=== PATIENT | male | born 1965 | race Caucasian/White ===

== ENCOUNTER 2021-09-10 11:03 | Inpatient (IN) ==
--- NOTE | 2021-08-13 12:30 | Anesthesiology Consultation ---
Date of Service August 13, 2021 Assessment & Plan (1) Encounter for pre-operative examination: Chart Review Chart Review: Acceptable Risk for Surgery and Patient NOT seen in Pre Admission Testing Consults Requested none History Surgery Operation Date: 08/21/21 07:45 Proposed Procedures p L4-L5 Decompression and Fusion, L5-S1 Hardware Removal - Christophe Post DO Height/Weight Height: 5 ft 11 in Weight: 136.078 kg Allergies Allergy/AdvReac Type Severity Reaction Status Date / Time oxycodone AdvReac Mild "SHAKY" Verified 08/04/21 07:32 Medications Home Medications Medication Instructions Recorded Confirmed Last Taken acebutolol 200 mg capsule 200 mg PO BID 08/04/21 08/04/21 Unknown acetaminophen 325 mg tablet 650 mg PO QAM 08/04/21 08/04/21 Unknown (Tylenol) albuterol sulfate 90 mcg/actuation 1 inh INHALATION QID PRN 08/04/21 08/04/21 Unknown aerosol inhaler cyclobenzaprine 10 mg tablet 10 mg PO TID PRN 08/04/21 08/04/21 Unknown fluticasone furoate 200 1 inh INHALATION QAM 08/04/21 08/04/21 Unknown mcg-vilanterol 25 mcg/dose inhalation powder (Breo Ellipta) indomethacin 50 mg capsule 50 mg PO QID PRN 08/04/21 08/04/21 Unknown sertraline 100 mg tablet 200 mg PO QAM 08/04/21 08/04/21 Unknown simvastatin 20 mg tablet (Zocor) 20 mg PO PM 08/04/21 08/04/21 Unknown tiotropium bromide 18 mcg capsule 1 cap INHALATION QAM 08/04/21 08/04/21 Unknown with inhalation device (Spiriva with HandiHaler) Past Medical History Medical History Anxiety Asthma uses resc inh at Degenerative disc disease Gout History of COVID-28 October 2020> hospitalized at [facility] > 2 days > had pneumonia with it Hyperlipidemia Hypertension Osteoarthritis Sleep apnea cpap Past Surgical History Surgical History Fusion of spine L5 - S1 History of cardiac cath 2019> no stents History of colonoscopy History of tonsillectomy History of tooth extraction History of total knee replacement right Hx of umbilical hernia repair Social History Smoking Status: Never smoker Do You Dip or Chew Tobacco: No Hx Alcohol Use: No Hx Substance Use: No substance use type: does not use Testing Laboratory Results 07/21/21 WBC 6.1 Hgb 14.7 platelet 208 07/26/21 Na 137 K 4.5 Cl 106 CO2 27 BUN 23 Cr 1.14 glucose 108 Electrocardiogram Date: 07/21/21 SB @ [address]-T changes are nonspecific Echocardiogram Date: 03/23/18 Technically limited study, enhanced with echo contrast Normal LV size, EF 66 % Moderate LVH No valve pathology Cardiac Catheterization Date: 03/23/18 Angiographically normal coronary arteries Normal ejection fraction Noncardiac chest pain
[~2021-09-10 11:03] MED LIST: ACETAMINOPHEN 500 MG TAB PO SCH; CeleBREX 200 MG CAP PO SCH; GABAPENTIN 600 MG DOSE PO SCH; LR 15ML/HR IV SCH
[2021-09-10] MEDS ORDERED: MIDAZOLAM HCL 1 MG/ML 2ML VIAL ONE (11:17)
[2021-09-10] MEDS ORDERED: fentaNYL citrate 100 MCG/2 ML VIAL ONE (11:17)
--- NOTE | 2021-09-10 13:50 | History & Physical Report ---
Date of Service September 10, 2021 Assessment & Plan (1) Neurogenic claudication due to lumbar spinal stenosis: Plan: L4-L5 decompression and fusion, L5-S1 hardware removal History of Present Illness Chief Complaint: Back and leg pain Primary Care Provider: Justo Doty MD This is a 48-year-old male who presents with chronic persistent back and leg pain. After failing a course of nonoperative care is here for surgical invention. Allergies Allergy/AdvReac Type Severity Reaction Status Date / Time oxycodone AdvReac Mild "SHAKY" Verified 09/10/21 11:23 Home Medications Medication Instructions Recorded Confirmed Type acebutolol 200 mg capsule 200 mg PO BID 08/04/21 09/10/21 History acetaminophen 325 mg tablet 650 mg PO QAM 08/04/21 09/10/21 History (Tylenol) albuterol sulfate 90 mcg/actuation 1 inh INHALATION QID PRN 08/04/21 09/10/21 History aerosol inhaler cyclobenzaprine 10 mg tablet 10 mg PO TID PRN 08/04/21 09/10/21 History fluticasone furoate 200 1 inh INHALATION QAM 08/04/21 09/10/21 History mcg-vilanterol 25 mcg/dose inhalation powder (Breo Ellipta) indomethacin 50 mg capsule 50 mg PO QID PRN 08/04/21 09/10/21 History sertraline 100 mg tablet (Zoloft) 200 mg PO QAM 08/04/21 09/10/21 History simvastatin 20 mg tablet (Zocor) 20 mg PO PM 08/04/21 09/10/21 History tiotropium bromide 18 mcg capsule 1 cap INHALATION QAM 08/04/21 09/10/21 History with inhalation device (Spiriva with HandiHaler) ibuprofen 100 mg tablet 600 mg PO QID PRN 09/10/21 09/10/21 History Past Med/Surg History Medical History Anxiety Asthma uses resc inh at Degenerative disc disease Gout History of COVID-28 October 2020> hospitalized at [facility] > 2 days > had pneumonia with it Hyperlipidemia Hypertension Osteoarthritis Sleep apnea cpap Surgical History Fusion of spine L5 - S1 History of cardiac cath 2020> no stents History of colonoscopy History of tonsillectomy History of tooth extraction History of total knee replacement right Hx of umbilical hernia repair Social History Smoking Status: Never smoker Second Hand Exposure: No; Do You Dip or Chew Tobacco: No; Tobacco Cessation Education Requested by Patient: No Hx Alcohol Use: No Hx Substance Use: No Preferred Language: Romansh Communication Ability: Effective Industrial Security Analyst Required: No Beliefs That Will Affect Care: None Current Living Situation: Spouse Other Information That Helps Us Care for You: No Feels Safe at Home: Yes Safety Concerns: Feels Safe At This Time Assistive Devices: CPAP and Glasses Physical Exam Physical Exam: Patient is alert and oriented Heart regular rhythm Lungs clear Results & Data ([facility]) Vital Signs (Past 12 Hours) Vital Signs Temp Pulse Resp BP Pulse Ox 09/10/21 11:32 36.8 C 69 20 153/89 H 97
[2021-09-10] MEDS ORDERED: BUPIVACAINE 0.5 % 5 MG/1 ML MPF 30ML VIAL ONE (14:13)
[2021-09-10] MEDS ORDERED: EPINEPHrine INJ 1 MG/ML AMP ONE (14:13)
[2021-09-10] MEDS ORDERED: ceFAZolin 330 MG/ML 1 GM VIAL ONE (14:14)
[2021-09-10] MEDS ORDERED: PHENYLEPHRINE 100MCG/ML 5ML SYR ONE (14:53)
[2021-09-10] MEDS ORDERED: HYDROmorphone INJ 2 MG/ML SYR/VIAL ONE (14:54)
[2021-09-10] MEDS ORDERED: LIDOCAINE 2% 2 ML VIAL/AMP(20MG/ML) INFIL ONE (14:54)
[2021-09-10] MEDS ORDERED: SUCCINYLCHOLINE CHLORIDE 20 MG/ML 10 ML VIAL IV ONE (14:54)
[2021-09-10] MEDS ORDERED: ePHEDrine sulfate 50 MG/ML AMP ONE (14:54)
[2021-09-10] MEDS ORDERED: LARYING-O-JET KIT (LTA) ONE (14:54)
[2021-09-10] MEDS ORDERED: NEOSTIGMINE METHYLSULFATE 1 MG/ML 10ML VIAL ONE (14:54)
[2021-09-10] MEDS ORDERED: ROCURONIUM BROMIDE 10 MG/ML 5 ML VIAL IV ONE (14:54)
[2021-09-10] MEDS ORDERED: ONDANSETRON INJ 2 MG/ML 2 ML VIAL ONE (14:54)
[2021-09-10] MEDS ORDERED: DEXAMETHASONE SOD INJ 4 MG/ML VIAL ONE (14:54)
[2021-09-10] MEDS ORDERED: GLYCOPYRROLATE 0.2 MG/ML VIAL ONE (14:54)
[2021-09-10] MEDS ORDERED: PROPOFOL IV EMULSION 10 MG/ML 20 ML VIAL IV ONE (14:54)
[2021-09-10] MEDS ORDERED: FLOSEAL HEMOSTATIC MATRIX 10ML TOP ONE (15:08)
--- NOTE | 2021-09-10 16:13 | Operative Report ---
Post Operative Report Pre & Post Diagnosis Operation Date: 08/21/21 12:45 <No data on this case meets the specified criteria> Operation Date: 09/10/21 12:35 Pre-Op Diagnosis: Neurogenic claudication due to lumbar spinal stenosis Post-Op Diagnosis: Neurogenic claudication due to lumbar spinal stenosis I identified the patient and participated in the time-out.: Yes Procedure Operation Date: 08/21/21 12:45 <No data on this case meets the specified criteria> Operation Date: 09/10/21 12:35 Actual Procedures #1 removal of posterior instrumentation L5-S1. #2 exploration of fusion L5-S1. #3 lumbar decompression with bilateral medial facetectomies and foraminotomies L3-L4 L4-5. #4 posterior spinal fusion L4-5. #5 placement of posterior instrumentation L4-L5. #6 interbody fusion L4-5. #7 placement of titanium cage 13 x 26 mm at L4-L5. #8 placement of locally harvested morselized autograft in the posterior gutters. #9 placement infuse collagen sponge, master graft in the posterior lateral gutters and I factor interbody space. Surgeon Christophe Post, DO Recreation Attendant Supervisor Jud Calhoun Estimated Blood Loss 250 Findings See Below The patient is 5 foot 11 inches tall weighing over 143 kg with a BMI in excess of 44. Patient's body habitus did contribute to significant technical difficulty required deepest retractors longus instruments in order to perform his procedure. This had at least 50% increased operative time. Specimens None Indications This is a 48-year-old male known to me presents with marked decline in status after failing course of nonoperative care is here for the above and procedure. Description of Procedure Patient met with identified informed consent obtained. Patient was then taken to the operative suite underwent ablation placed in a prone position the [facility] top Joe frame. All bony prominences well-padded eyes inspected to ensure no external pressure placed upon the. This point lumbar spine was prepped and draped in a sterile fashion. Sharp dissection with the assistance of Bovie cautery was performed down to and exposing the lamina and transverse processes of L4 and instrumentation at L5-S1 bilaterally. I then proceeded move the hardware bilaterally explore the fusion mass noting it to be mature and intact. Then performed a complete laminectomy of L4 partial laminectomy of L3 including bilateral medial facetectomies and foraminotomies addressing severe lateral recess stenosis. Pedicle screws were then placed in L4 and L5 bilaterally with assistance of fluoroscopy and appropriate sized talia placed. By way of a transforaminal portion radically discectomy of L4-5 was performed endplates curetted to subcortical mean bone and a 13 x 26 mm titanium cage filled I factor tapped in position. The rods then compressed locked into final position bilaterally. The transverse processes of L4 and L5 burred to subcortically bone. Infuse collagen sponge master graft local autograft was placed in the posterior gutters. 15 round JENNY drain inserted. The incision was then closed with 1 Vicryl in the fascia 2-0 Vicryl subcutaneously and 4 Monocryl for final skin closure. Steri-Strip sterile dressings placed. Patient will continue PACU stable condition. Please note spinal cord monitoring was utilized at the procedure no changes noted. Lastly Jud Calhoun was present at the entire surgeon while the patient positioning complex portions of the surgery and final skin closure. I attest to the content of the Intraoperative Record and any orders documented therein. Any exceptions are noted below.
--- NOTE | 2021-09-10 16:21 | Fluoroscopy Report ---
FL lumbar spine 2-3V CLINICAL HISTORY: L4-L5 DECOMPRESSION/FUSION L5-S1 HW REMOVAL COMPARISON STUDY: Lumbar spine MRI November 21, 2019. FLUOROSCOPY TIME: 11 seconds. FLUOROSCOPIC IMAGES: 2 FINDINGS: Previous L5-S1 discectomy with interbody spacer placement is noted. L5-S1 hardware was anne-marie kimmy. Interval L4-L5 discectomy and interbody spacer placement as noted. Posterior decompression with bilateral pedicle screw fusion at L4 and L5 is noted. IMPRESSION: Fluoroscopy provided during hardware removal, interval L4-L5 discectomy, posterior decom pression and bilateral pedicle screw fusion. ACT 112: Negative or not required by law. Electronically signed by: Danyel Huffman M.D. 09/10/2021 4:20 PM
[2021-09-10] MEDS ORDERED: ePHEDrine sulfate 50 MG/ML AMP IV PRN (16:39)
[2021-09-10] MEDS ORDERED: FLUMAZENIL 0.1 MG/1 ML 10 ML VIAL IV PRN (16:39)
[2021-09-10] MEDS ORDERED: ATROPINE SULFATE 0.1 MG/ML 10ML SYR IV PRN (16:39)
[2021-09-10] MEDS ORDERED: ONDANSETRON INJ 2 MG/ML 2 ML VIAL IV PRN ×2 (16:39→17:41)
[2021-09-10] MEDS ORDERED: LABETALOL HCL IV 5 MG/ML 20ML IV PRN (16:39)
[2021-09-10] MEDS ORDERED: HYDROmorphone INJ 1 MG/ML SYRINGE IV PRN ×2 (16:39→17:41)
[2021-09-10] MEDS ORDERED: NALOXONE HCL 0.4 MG/1 ML VIAL/CARP IV PRN ×2 (16:39→17:41)
[2021-09-10] MEDS ORDERED: PROMETHAZINE HCL 12.5 MG in SODIUM CHLORIDE 0.9% 50 ML IV PRN ×2 (16:39→17:41)
[2021-09-10] MEDS: fentaNYL citrate 100 MCG/2 ML VIAL IV PRN ×4 (17:10→17:25)
--- NOTE | 2021-09-10 17:24 | Anesthesiology Progress Note ---
Date of Service September 10, 2021 Anesthesia Post Procedure Vital Signs Vital Signs: Temp Pulse Pulse Resp BP Pulse Ox 09/10/21 17:00 64 16 133/79 93 09/10/21 16:50 64 16 128/80 98 09/10/21 16:40 62 16 124/94 99 09/10/21 16:30 36.3 C L 59 L 20 138/86 97 09/10/21 11:32 36.8 C 69 20 153/89 H 97 Pain Intensity Lower Back: Pain Intensity: 2 Transfer of Care Handoff Completed per policy Notes Mental Status: alert / awake / arousable Patient Amnestic to Procedure: Yes Nausea / Vomiting: adequately controlled Pain: adequately controlled Airway Patency, RR, SpO2: stable & adequate BP & HR: stable & adequate Hydration State: stable & adequate Anesthetic Complications: no major complications apparent
[2021-09-10] MEDS ORDERED: LORazepam 0.5 MG TAB PO PRN (17:41)
[2021-09-10] MEDS ORDERED: METOCLOPRAMIDE HCL INJ 5 MG/ML 2 ML VIAL IV PRN (17:41)
[2021-09-10] MEDS ORDERED: LORazepam 2 MG/1 ML VIAL IV PRN (17:41)
[2021-09-10] MEDS ORDERED: DO NOT ADMINISTER PNEUMOCOCCAL VACCINE PRN (17:41)
[2021-09-10] MEDS ORDERED: traMADol HCL 50 MG TABLET PO PRN (17:41)
[2021-09-10] MEDS ORDERED: ACETAMINOPHEN 500 MG TAB PO PRN (17:41)
[2021-09-10] MEDS ORDERED: SOD PHOSPHATE/SOD BIPHOSPHATE ENEMA 132 ML BTL PR PRN (17:41)
[2021-09-10] MEDS ORDERED: hydrOXYzine HCl 25 MG TAB PO PRN (17:41)
[2021-09-10] MEDS ORDERED: ALBUTEROL HFA 8 GM INHALER INH PRN (17:41)
[2021-09-10] MEDS ORDERED: ONDANSETRON 4 MG OD TAB PO PRN (17:41)
[2021-09-10] MEDS ORDERED: bisacodyL 10 MG SUPP PR PRN (17:41)
[2021-09-10] MEDS ORDERED: ACETAMINOPHEN 1,000 MG/100 ML VIAL IV PRN (17:41)
[2021-09-10] MEDS ORDERED: HYDROmorphone INJ 0.5 MG/0.5 ML SYR IV PRN (17:41)
[2021-09-10] MEDS ORDERED: DO NOT ADMINISTER FLU VACCINE PRN (17:41)
[2021-09-10] MEDS ORDERED: diphenhydrAMINE Capsule 25 MG CAP PO PRN (17:41)
[2021-09-10] MEDS ORDERED: MAGNESIUM HYDROXIDE SUSP 30 ML UDC PO PRN (17:41)
--- NOTE | 2021-09-10 18:21 | Consultation ---
Date of Consultation September 10, 2021 Assessment & Plan (1) Status post lumbar surgery: Post op day# 0 S/P L4-L5 decompression and fusion by Dr Post EBL#250ml -pain management per ortho -wound management per ortho -PT/OT as appropriate -DVT prophylaxis per ortho -incentive spirometry -monitor H&H for acute blood loss anemia; pre-op Hgb: 14.7 (2) Hypertension: -Continue acebutolol (3) Hyperlipidemia: -Continue statin (4) Asthma: -Continue home inhalers (5) Sleep apnea: -Continue CPAP HS (6) Anxiety: -Continue sertraline DVT Prophylaxis -SCDs per Ortho Disposition per primary service Follows with Dr Doty in [place] for routine care Pt was seen and care coordinated with Dr Larson. See addendum Thank you for this consultation. We will follow the patient with you during their hospital stay. You can reach a member of the [facility] Team 01/02 via [employer] Supervising Physician Co-Signing Physician Notes Patient is a 56-year-old male with history of hypertension, hyperlipidemia, asthma, sleep apnea and other medical problems was consulted for medical management. Patient had lumbar stenosis with neurogenic claudication and underwent lumbar surgery by Dr. Post. Postoperatively patient is doing well. He denies any chest pain, shortness of breath, dizziness, nausea, abdominal pain. Please review HPI for complete details. On exam patient is morbidly obese, no apparent distress, normocephalic atraumatic, EOMI, normal breath sounds, clear to auscultation, S1-S2, no murmur, no pedal edema, abdomen soft, nontender, normal bowel sounds, alert, awake, oriented, grossly no focal deficits. S/P lumbar surgery POD # 0. Pain management, DVT prophylaxis, wound care as per primary team. PT OT when appropriate. Monitor for postop anemia. Incentive spirometry. Continue CPAP for obstructive sleep apnea. Continue home medications for hypertension and hyperlipidemia. Bowel regimen to prevent constipation. I personally reviewed the record. Patient is interviewed and examined at bedside. Patient's care is coordinated with Flori Logan. Please refer to the documentation above for details of patient's presentation and for discussion of other issues. History of Present Illness Requesting Physician: Dr. Post Reason for Consultation: Postop medical management Attending Physician: Christophe M Sejal, DO History of Present Illness Patient is 56-year-old male with PMH HTN, HLD, sleep apnea, asthma, anxiety seen in medical consultation s/p L4-L5 decompression and fusion today by Dr. Post. Postop patient reports some low back pain that is tolerable. Denies any pain to extremities or paresthesias. Denies nausea, vomiting, chest pain, shortness of breath. Reports feels hungry. Has Randolph catheter in place. Reports last BM was this morning prior to surgery. Denies fever/chills, LEÓN, dizziness, sore throat, choking, otalgia, rhinorrhea, abdominal pain, extremity edema, rashes, urinary symptoms. Allergies Allergy/AdvReac Type Severity Reaction Status Date / Time oxycodone AdvReac Mild "SHAKY" Verified 09/10/21 11:23 Home Medications Medication Instructions Recorded Confirmed Type acebutolol 200 mg capsule 200 mg PO BID 08/04/21 09/10/21 History acetaminophen 325 mg tablet 650 mg PO QAM 08/04/21 09/10/21 History (Tylenol) albuterol sulfate 90 mcg/actuation 1 inh INHALATION QID PRN 08/04/21 09/10/21 History aerosol inhaler cyclobenzaprine 10 mg tablet 10 mg PO TID PRN 08/04/21 09/10/21 History fluticasone furoate 200 1 inh INHALATION QAM 08/04/21 09/10/21 History mcg-vilanterol 25 mcg/dose inhalation powder (Breo Ellipta) indomethacin 50 mg capsule 50 mg PO QID PRN 08/04/21 09/10/21 History sertraline 100 mg tablet (Zoloft) 200 mg PO QAM 08/04/21 09/10/21 History simvastatin 20 mg tablet (Zocor) 20 mg PO PM 08/04/21 09/10/21 History tiotropium bromide 18 mcg capsule 1 cap INHALATION QAM 08/04/21 09/10/21 History with inhalation device (Spiriva with HandiHaler) ibuprofen 100 mg tablet 600 mg PO QID PRN 09/10/21 09/10/21 History Patient History Medical History Anxiety Asthma uses resc inh at [facility] Degenerative disc disease Gout History of COVID-28 October 2020> hospitalized at [facility] > 2 days > had pneumonia with it Hyperlipidemia Hypertension Osteoarthritis Sleep apnea cpap Surgical History Fusion of spine L5 - S1 History of cardiac cath 2019> no stents History of colonoscopy History of tonsillectomy History of tooth extraction History of total knee replacement right Hx of umbilical hernia repair Family History (Updated 09/10/21 @ 18:43 by Flori Tse PA-C) Other Diabetes Heart disease Social History Smoking Status: Never smoker Second Hand Exposure: No; Do You Dip or Chew Tobacco: No; Tobacco Cessation Education Requested by Patient: No Hx Alcohol Use: No Hx Substance Use: No Preferred Language: French Communication Ability: Effective Clinical Transplant Coordinator Required: No Beliefs That Will Affect Care: None Current Living Situation: Spouse Other Information That Helps Us Care for You: No Feels Safe at Home: Yes Safety Concerns: Feels Safe At This Time Assistive Devices: Walker Review of Systems Review of Systems: All systems reviewed & are unremarkable except as noted in HPI & below Physical Exam Physical Exam: General: no distress, obese Head: normocephalic, atraumatic Eyes: conjunctiva non-injected, anicteric ENT: normal inspection external ears, nose, mucous membranes moist Neck: supple, trachea midline Lungs: clear, no respiratory distress, no wheezing/rhonchi/rales CV: RRR, no murmur, no pretibial edema Abd: protuberant, normal BS, soft, non-tender Ext: no cyanosis, no calf tenderness; pedal pushes and pulls intact bilaterally, sensation to light touch intact Neuro: A&O x 3, no focal deficits noted, normal affect Skin: warm, dry Results & Data ([facility]) Vital Signs (Past 12 Hours) Vital Signs Temp Pulse Pulse Pulse Resp BP Pulse Ox 09/10/21 18:11 36.4 C L 73 18 138/84 91 09/10/21 17:45 72 14 133/81 96 09/10/21 17:30 64 14 143/89 H 96 09/10/21 17:20 64 14 152/96 H 96 09/10/21 17:15 65 17 128/77 99 09/10/21 17:10 36.1 C L 64 16 131/76 99 09/10/21 17:00 64 16 133/79 93 09/10/21 16:50 64 16 128/80 98 09/10/21 16:40 62 16 124/94 99 09/10/21 16:30 36.3 C L 59 L 20 138/86 97 09/10/21 11:32 36.8 C 69 20 153/89 H 97
[2021-09-10] MEDS: LACTATED RINGER'S 1,000 ML IV SCH (18:41)
[2021-09-10] MEDS: SIMVASTATIN 20 MG TAB PO SCH (20:13)
[2021-09-10] MEDS: DOCUSATE SODIUM/SENNA 50/8.6MG TAB PO SCH (20:13)
[2021-09-10] MEDS: ACEBUTOLOL HCL 200 MG CAPSULE PO SCH (20:13)
[2021-09-10] MEDS: HYDROCODONE/ACETAMOPHEN 5/325MG TAB PO PRN (20:23)
[2021-09-10] MEDS: ceFAZolin 2000MG 2,000 MG/15 ML SYR IV SCH (22:22)
[2021-09-11] MEDS: LACTATED RINGER'S 1,000 ML IV SCH (01:59)
[2021-09-11] MEDS: HYDROCODONE/ACETAMOPHEN 5/325MG TAB PO PRN ×4 (04:48→21:17)
[2021-09-11] MEDS: ALUMINUM/MAGNESIUM SUSP 30 ML UDC PO PRN (04:48)
[2021-09-11 05:33] LABS: Hematocrit (blood only) 39.4 % (42-52); Hemoglobin 13.7 g/dL (14.0-18.0); Immature Granulocytes # (auto) 0.02 K/uL (0.00-0.02); Immature Granulocytes % (auto) 0.1 %; Lymphocytes # (auto) 0.66 K/uL (1.2-3.4); Lymphocytes % (auto) 4.6 %; Mean Corpuscular Hemoglobin 31.6 pg (25-34); Mean Corpuscular Hgb Conc 34.8 g/dL (32-36); Mean Corpuscular Volume 90.8 fL (80-100); Mean Platelet Volume 10.5 fL (7.4-10.4); Monocytes # (auto) 1.23 K/uL (0.11-0.59); Monocytes % (auto) 8.5 %; Neutrophils # (auto) 12.51 K/uL (1.4-6.5); Neutrophils % (auto) 86.8 %; Platelet Count 205 K/uL (130-400); RDW Coefficient of Variation 12.8 % (11.5-14.5); RDW Standard Deviation 42.5 fL (36.4-46.3); Red Blood Count 4.34 M/uL (4.7-6.1); White Blood Count 14.42 K/uL (4.8-10.8)
[2021-09-11 06:06] LABS: BUN Creatinine Ratio 18.9 (10-20); Calcium 9.2 mg/dl (8.5-10.1); Creatinine Clr Calc Pharmacy 104.9 ml/min; Est GFR (African American) 89.2 ml/min; Potassium 4.2 mmol/L (3.5-5.1)
[2021-09-11] MEDS: POLYETHYLENE (MIRALAX) 17 GM PACK PO SCH ×4 (06:06→23:40)
[2021-09-11] MEDS: ceFAZolin 2000MG 2,000 MG/15 ML SYR IV SCH (06:06)
[2021-09-11] MEDS: FAMOTIDINE 20 MG TAB PO PRN (07:59)
[2021-09-11] MEDS: dexAMETHasone 6 MG in SYRINGE 0 ML IV SCH (08:16)
[2021-09-11] MEDS: SERTRALINE HCL 100 MG TABLET PO SCH (08:17)
[2021-09-11] MEDS: FLUTICASONE/VILANTEROL 200/25MCG 14 PUFFS/INHALER INH SCH (08:17)
[2021-09-11] MEDS: ACEBUTOLOL HCL 200 MG CAPSULE PO SCH ×2 (08:17→21:13)
[2021-09-11] MEDS: UMECLIDINIUM BROMIDE 62.5MCG/BLISTER 7 PUFFS/INHALER INH SCH (08:18)
--- NOTE | 2021-09-11 08:55 | Orthopedic Progress Note ---
Date of Service September 11, 2021 Assessment & Plan (1) Status post lumbar surgery: Plan: Patient will start with ambulation and physical therapy today. Maintain JENNY drain. DVT prophylaxis is in the form teds and SCDs. Continue with bowel regimen. Pain control. Anticipate discharge home over the weekend. Admission and Anticipated Discharge Date Admission Date: September 10, 2021 Subjective He is postoperative day 1 hard removal L5-S1, TLIF L4-5. He has had an uneventful evening. No new complaints. Leg symptoms greatly improved. H&H is morning at 13.7 and 39.4 respectively. JENNY output last shift was 10cc. Review of Systems Review of Systems: All systems reviewed & are unremarkable except as noted in HPI & below Physical Exam Physical Exam: Patient sitting upright in bed eating breakfast. Alert and oriented x3 no acute distress Lumbar dressing is clean dry and intact with functioning JENNY drain calves are soft nontender bilateral lower extremities strength intact bilateral lower extremities Results & Data ([facility]) Vital Signs (Past 12 Hours) Vital Signs Temp Pulse Resp BP Pulse Ox 09/11/21 08:01 36.6 C 70 18 123/73 93 09/11/21 02:49 36.6 C 69 18 112/65 98 09/10/21 21:00 36.6 C 77 18 122/72 93
--- NOTE | 2021-09-11 17:05 | Hospitalist Progress Note ---
Date of Service September 11, 2021 Assessment & Plan (1) Status post lumbar surgery: Plan: Post op day# 1 S/P L4-L5 decompression and fusion by Dr Sejal MURILLO#250ml -pain management per ortho -wound management per ortho -PT/OT as appropriate -DVT prophylaxis per ortho -incentive spirometry -monitor H&H for acute blood loss anemia; pre-op Hgb: 14.7 (2) Hypertension: Plan: -chronic, at goal, Continue acebutolol (3) Hyperlipidemia: Plan: -chronic, stable, Continue statin (4) Asthma: Plan: -chronic, stable, Continue home inhalers (5) Sleep apnea: Plan: -Continue CPAP HS (6) Anxiety: Plan: -chornic, stable, Continue sertraline DVT Prophylaxis -SCDs per Ortho Disposition per primary service Follows with Dr Doty in [place] for routine care Thank you for this consultation. We will follow the patient with you during their hospital stay. You can reach a [facility] of the [facility] 01/02 via [employer] Lora Edward DO [facility] Admission and Anticipated Discharge Date Admission Date: September 10, 2021 Subjective 56-year-old man status post lumbar surgery, postop day #1. Patient reports pain that is controlled with current medications. He is able to get into a sitting position on the side of the bed and feel comfortable. No other complaints at this time and tolerating p.o. Review of Systems Review of Systems: All systems reviewed negative except as indicated above. Physical Exam Physical Exam: CONSTITUTIONAL: obese, vitals as above, generally well- appearing EYES: normal conjunctivae, no scleral icterus ENT: external ear and nose normal, MMM NECK: trachea midline RESPIRATORY: clear to auscultation bilaterally, no crackles, rales or wheezes, normal respiratory effort CARDIOVASCULAR: regular rate and rhythm, S1 and 2 heard without murmurs, gallops or rubs, no JVD, no peripheral edema CHEST: inspection of chest was normal GASTROINTESTINAL: normal bowel sounds, soft, nontender, ND, no guarding MUSCULOSKELETAL: strength 5/5 throughout, head is normocephalic and atraumatic SKIN: warm and dry, NEUROLOGIC: CN 2-12 grossly intact, no sensory deficit, normal cognition, normal speech, no tremor PSYCHIATRIC: alert cooperative and oriented to person, place and time. Results & Data Results & Data ([facility]) Vital Signs (Past 12 Hours) Vital Signs Temp Pulse Resp BP Pulse Ox 09/11/21 16:21 37.2 C 77 18 163/74 H 97 09/11/21 08:01 36.6 C 70 18 123/73 93 Laboratory Results Short CBC 09/11/21 Range/Units 04:57 WBC 14.42 H (4.8-10.8) K/uL Hgb 13.7 L (14.0-18.0) g/dL Hct 39.4 L (42-52) % Plt Count 205 (130-400) K/uL BMP 09/11/21 04:57 Sodium 136 Potassium 4.2 Chloride 103 Carbon Dioxide 26 BUN 20 Creatinine 1.06 Glucose 155 H Calcium 9.2 Medications Administered Current Inpatient Medications Acebutolol HCl (Acebutolol Hcl 200 Mg Capsule) 200 mg PO BID BHARAT Stop: 10/10/21 20:59 Last Admin: 09/11/21 08:17 Dose: 200 mg Documented by: Acetaminophen (Acetaminophen 500 Mg Tab) 1,000 mg PO Q8H PRN PRN Reason: MILD Pain Scale 1,2,3 & Pre PT Stop: 10/10/21 17:40 Hydrocodone Bitart/Acetaminophen (Hydrocodone/Acetamophen 5/325mg Tab) 1 - 2 tab PO Q4H PRN PRN Reason: Pain & Pre PT Stop: 09/24/21 17:40 Last Admin: 09/11/21 11:58 Dose: 2 tab Documented by: Al Hydrox/Mg Hydrox/Simethicone (Aluminum/Magnesium Susp 30 Ml Udc) 30 ml PO Q6H PRN PRN Reason: Dyspepsia Stop: 10/10/21 17:40 Last Admin: 09/11/21 04:48 Dose: 30 ml Documented by: Albuterol (Albuterol Hfa 8 Gm Inhaler) 1 puffs INH QID PRN PRN Reason: Wheezing Stop: 10/10/21 17:40 Bisacodyl (Bisacodyl 10 Mg Supp) 10 mg IN DAILY PRN PRN Reason: Constipation Stop: 10/10/21 17:40 Diphenhydramine HCl (Diphenhydramine Capsule 25 Mg Cap) 25 mg PO Q6H PRN PRN Reason: Allergic Rhinitis/Insomnia Stop: 10/10/21 17:40 Famotidine (Famotidine 20 Mg Tab) 20 mg PO Q12H PRN PRN Reason: Dyspepsia Stop: 10/10/21 17:40 Last Admin: 09/11/21 07:59 Dose: 20 mg Documented by: Fluticasone/Vilanterol (Fluticasone/Vilanterol 200/25mcg 14 Puffs/Inhaler) 1 puffs INH QAM [facility] Stop: 10/11/21 08:59 Last Admin: 09/11/21 08:17 Dose: 1 puffs Documented by: Hydromorphone HCl (Hydromorphone Inj 0.5 Mg/0.5 Ml Syr) 0.5 mg IV Q3H PRN PRN Reason: MODERATE Pain (Scale 4,5,6) & Pre PT Stop: 09/24/21 17:40 Hydromorphone HCl (Hydromorphone Inj 1 Mg/Ml Syringe) 1 mg IV Q3H PRN PRN Reason: SEVERE Pain (Scale 7,8,9,10) Stop: 09/24/21 17:40 Hydroxyzine HCl (Hydroxyzine Hcl 25 Mg Tab) 25 mg PO Q8H PRN PRN Reason: Anxiety Stop: 10/10/21 17:40 Promethazine HCl 12.5 mg/ (Sodium Chloride) 50.5 mls @ 202 mls/hr IV Q6H PRN PRN Reason: Nausea &/or Vomiting Stop: 10/10/21 17:40 Acetaminophen (Ofirmev) 1,000 mg in 100 mls @ 400 mls/hr IV Q8H PRN PRN Reason: Pain Rating 1-3 & Pre PT Stop: 09/13/21 17:40 Dexamethasone 6 mg/ Syringe 1.5 mls @ 1 mls/min IV DAILY [facility] Stop: 09/13/21 09:02 Last Admin: 09/11/21 08:16 Dose: 1 mls/min Documented by: Influenza Virus Vaccine Quadrival (Do Not Administer Flu Vaccine) 1 ea N/A PRN PRN PRN Reason: Notification Stop: 10/10/21 17:40 Lorazepam (Lorazepam 0.5 Mg Tab) 0.5 mg PO Q8H PRN PRN Reason: Sedation/Anxiety Stop: 10/10/21 17:40 Lorazepam (Lorazepam 2 Mg/1 Ml Vial) 0.5 mg IV Q8H PRN PRN Reason: Sedation/Anxiety Stop: 10/10/21 17:40 Magnesium Hydroxide (Magnesium Hydroxide Susp 30 Ml Udc) 30 ml PO Q24H PRN PRN Reason: Constipation Stop: 10/10/21 17:40 Metoclopramide HCl (Metoclopramide Hcl Inj 5 Mg/Ml 2 Ml Vial) 10 mg IV Q6H PRN PRN Reason: Nausea &/or Vomiting Stop: 10/10/21 17:40 Naloxone HCl (Naloxone Hcl 0.4 Mg/1 Ml Vial/Carp) 0.1 mg IV Q5M PRN PRN Reason: Oversedation/Resp depression Stop: 10/10/21 17:40 Ondansetron HCl (Ondansetron Inj 2 Mg/Ml 2 Ml Vial) 4 mg IV Q6H PRN PRN Reason: Nausea &/or Vomiting Stop: 10/10/21 17:40 Ondansetron HCl (Ondansetron 4 Mg Od Tab) 4 mg PO Q6H PRN PRN Reason: Nausea Stop: 10/10/21 17:40 Pneumococcal Polyvalent Vaccine (Do Not Administer Pneumococcal Vaccine) 1 ea N/A PRN PRN PRN Reason: Notification Stop: 10/10/21 17:40 Polyethylene Glycol (Polyethylene (Miralax) 17 Gm Pack) 17 gm PO Q6 BHARAT Stop: 10/11/21 05:59 Last Admin: 09/11/21 11:51 Dose: 17 gm Documented by: Senna/Docusate Sodium (Docusate Sodium/Senna 50/8.6mg Tab) 2 tab PO HS BHARAT Stop: 10/10/21 20:59 Last Admin: 09/10/21 20:13 Dose: 2 tab Documented by: Sertraline HCl (Sertraline Hcl 100 Mg Tablet) 200 mg PO QAM BHARAT Stop: 10/11/21 08:59 Last Admin: 09/11/21 08:17 Dose: 200 mg Documented by: Simvastatin (Simvastatin 20 Mg Tab) 20 mg PO PM BHARAT Stop: 10/10/21 20:59 Last Admin: 09/10/21 20:13 Dose: 20 mg Documented by: Sodium Biphosphate/Sodium Phosphate (Sod Phosphate/Sod Biphosphate Enema 132 Ml Btl) 132 ml IN ONE PRN PRN Reason: Constipation Stop: 10/10/21 17:40 Tramadol HCl (Tramadol Hcl 50 Mg Tablet) 50 - 100 mg PO Q4H PRN PRN Reason: Moderate-Severe pain & Pre PT Stop: 10/10/21 17:40 Umeclidinium [place] (Umeclidinium [place] 62.5mcg/Blister 7 Puffs/Inhaler) 1 [facility] Protocol Stop: 10/11/21 08:59 Last Admin: 09/11/21 08:18 Dose: 1 puffs Documented by:
[2021-09-11] MEDS: SIMVASTATIN 20 MG TAB PO SCH (21:13)
[2021-09-11] MEDS: DOCUSATE SODIUM/SENNA 50/8.6MG TAB PO SCH (21:13)
[2021-09-12] MEDS: POLYETHYLENE (MIRALAX) 17 GM PACK PO SCH ×4 (05:42→23:07)
[2021-09-12] MEDS: HYDROCODONE/ACETAMOPHEN 5/325MG TAB PO PRN ×3 (06:21→19:39)
[2021-09-12 06:22] LABS: Hematocrit (blood only) 35.3 % (42-52); Hemoglobin 12.1 g/dL (14.0-18.0); Mean Corpuscular Hemoglobin 31.5 pg (25-34); Mean Corpuscular Hgb Conc 34.3 g/dL (32-36); Mean Corpuscular Volume 91.9 fL (80-100); Mean Platelet Volume 10.2 fL (7.4-10.4); Platelet Count 152 K/uL (130-400); RDW Coefficient of Variation 13.4 % (11.5-14.5); RDW Standard Deviation 44.7 fL (36.4-46.3); Red Blood Count 3.84 M/uL (4.7-6.1); White Blood Count 9.96 K/uL (4.8-10.8)
[2021-09-12 06:40] LABS: BUN Creatinine Ratio 20.4 (10-20); Calcium 8.9 mg/dl (8.5-10.1); Creatinine Clr Calc Pharmacy 107.9 ml/min; Est GFR (African American) 92.4 ml/min; Est GFR (Non-African American) 79.7 ml/min
[2021-09-12] MEDS: UMECLIDINIUM BROMIDE 62.5MCG/BLISTER 7 PUFFS/INHALER INH SCH (08:07)
[2021-09-12] MEDS: dexAMETHasone 6 MG in SYRINGE 0 ML IV SCH (08:08)
[2021-09-12] MEDS: SERTRALINE HCL 100 MG TABLET PO SCH (08:08)
[2021-09-12] MEDS: FLUTICASONE/VILANTEROL 200/25MCG 14 PUFFS/INHALER INH SCH (08:08)
[2021-09-12] MEDS: ACEBUTOLOL HCL 200 MG CAPSULE PO SCH ×2 (09:57→20:50)
--- NOTE | 2021-09-12 12:13 | Orthopedic Progress Note ---
Date of Service September 12, 2021 Assessment & Plan (1) Neurogenic claudication due to lumbar spinal stenosis: Plan: This time we will maintain the JENNY drain another 24 hours continue physical therapy anticipate discharge home tomorrow. Admission and Anticipated Discharge Date Admission Date: September 10, 2021 Subjective Back pain controlled leg pain markedly improved Physical Exam Physical Exam: Patient is ambulating the halls. He is comfortable. Strength testing. Results & Data ([facility]) Vital Signs (Past 12 Hours) Vital Signs Temp Pulse Resp BP Pulse Ox 09/12/21 07:30 36.5 C 74 17 120/74 97
--- NOTE | 2021-09-12 14:39 | Hospitalist Progress Note ---
Date of Service September 12, 2021 Assessment & Plan (1) Status post lumbar surgery: Plan: Post op day# 2 S/P L4-L5 decompression and fusion by Dr Sejal MURILLO#250ml -pain management per ortho -wound management per ortho -PT/OT as appropriate -DVT prophylaxis per ortho -incentive spirometry -monitor H&H for acute blood loss anemia; pre-op Hgb: 14.7 (2) Hypertension: Plan: -chronic, at goal, Continue acebutolol (3) Hyperlipidemia: Plan: -chronic, stable, Continue statin (4) Asthma: Plan: -chronic, stable, Continue home inhalers (5) Sleep apnea: Plan: -Continue CPAP HS (6) Anxiety: Plan: -chornic, stable, Continue sertraline DVT Prophylaxis -SCDs per Ortho Disposition per primary service Follows with Dr Doty in [place] for routine care Thank you for this consultation. We will follow the patient with you during their hospital stay. You can reach a member of the [facility] 01/02 via [employer] Lora Edward DO [facility] Admission and Anticipated Discharge Date Admission Date: September 10, 2021 Subjective 56-year-old man status post lumbar surgery, postop day #2. Patient reports pain that is controlled with current medications. He is having some recurrence of left leg numbness and sciatica and is frustrated with this. Ambulating. Review of Systems Review of Systems: All systems reviewed negative except as indicated above. Physical Exam Physical Exam: CONSTITUTIONAL: obese, vitals as above, generally well- appearing EYES: normal conjunctivae, no scleral icterus ENT: external ear and nose normal, MMM NECK: trachea midline RESPIRATORY: clear to auscultation bilaterally, no crackles, rales or wheezes, normal respiratory effort CARDIOVASCULAR: regular rate and rhythm, S1 and 2 heard without murmurs, gallops or rubs, no JVD, no peripheral edema CHEST: inspection of chest was normal GASTROINTESTINAL: normal bowel sounds, soft, nontender, ND, no guarding MUSCULOSKELETAL: strength 5/5 throughout, head is normocephalic and atraumatic SKIN: warm and dry, NEUROLOGIC: CN 2-12 grossly intact, no sensory deficit, normal cognition, normal speech, no tremor PSYCHIATRIC: alert cooperative and oriented to person, place and time. Results & Data Results & Data ([facility]) Vital Signs (Past 12 Hours) Vital Signs Temp Pulse Resp BP Pulse Ox 09/12/21 07:30 36.5 C 74 17 120/74 97 Laboratory Results Short CBC 09/12/21 Range/Units 06:03 WBC 9.96 (4.8-10.8) K/uL Hgb 12.1 L (14.0-18.0) g/dL Hct 35.3 L (42-52) % Plt Count 152 (130-400) K/uL BMP 09/12/21 06:03 Sodium 139 Potassium 4.0 Chloride 105 Carbon Dioxide 31 BUN 21 Creatinine 1.03 Glucose 130 H Calcium 8.9 Medications Administered Current Inpatient Medications Acebutolol HCl (Acebutolol Hcl 200 Mg Capsule) 200 mg PO BID BHARAT Stop: 10/10/21 20:59 Last Admin: 09/12/21 09:57 Dose: 200 mg Documented by: Acetaminophen (Acetaminophen 500 Mg Tab) 1,000 mg PO Q8H PRN PRN Reason: MILD Pain Scale 1,2,3 & Pre PT Stop: 10/10/21 17:40 Hydrocodone Bitart/Acetaminophen (Hydrocodone/Acetamophen 5/325mg Tab) 1 - 2 tab PO Q4H PRN PRN Reason: Pain & Pre PT Stop: 09/24/21 17:40 Last Admin: 09/12/21 11:20 Dose: 2 tab Documented by: Al Hydrox/Mg Hydrox/Simethicone (Aluminum/Magnesium Susp 30 Ml Udc) 30 ml PO Q6H PRN PRN Reason: Dyspepsia Stop: 10/10/21 17:40 Last Admin: 09/11/21 04:48 Dose: 30 ml Documented by: Albuterol (Albuterol Hfa 8 Gm Inhaler) 1 puffs INH QID PRN PRN Reason: Wheezing Stop: 10/10/21 17:40 Bisacodyl (Bisacodyl 10 Mg Supp) 10 mg RI DAILY PRN PRN Reason: Constipation Stop: 10/10/21 17:40 Diphenhydramine HCl (Diphenhydramine Capsule 25 Mg Cap) 25 mg PO Q6H PRN PRN Reason: Allergic Rhinitis/Insomnia Stop: 10/10/21 17:40 Famotidine (Famotidine 20 Mg Tab) 20 mg PO Q12H PRN PRN Reason: Dyspepsia Stop: 10/10/21 17:40 Last Admin: 09/11/21 07:59 Dose: 20 mg Documented by: Fluticasone/Vilanterol (Fluticasone/Vilanterol 200/25mcg 14 Puffs/Inhaler) 1 puffs INH QAM [facility] Stop: 10/11/21 08:59 Last Admin: 09/12/21 08:08 Dose: 1 puffs Documented by: Hydromorphone HCl (Hydromorphone Inj 0.5 Mg/0.5 Ml Syr) 0.5 mg IV Q3H PRN PRN Reason: MODERATE Pain (Scale 4,5,6) & Pre PT Stop: 09/24/21 17:40 Hydromorphone HCl (Hydromorphone Inj 1 Mg/Ml Syringe) 1 mg IV Q3H PRN PRN Reason: SEVERE Pain (Scale 7,8,9,10) Stop: 09/24/21 17:40 Hydroxyzine HCl (Hydroxyzine Hcl 25 Mg Tab) 25 mg PO Q8H PRN PRN Reason: Anxiety Stop: 10/10/21 17:40 Promethazine HCl 12.5 mg/ (Sodium Chloride) 50.5 mls @ 202 mls/hr IV Q6H PRN PRN Reason: Nausea &/or Vomiting Stop: 10/10/21 17:40 Acetaminophen (Ofirmev) 1,000 mg in 100 mls @ 400 mls/hr IV Q8H PRN PRN Reason: Pain Rating 1-3 & Pre PT Stop: 09/13/21 17:40 Dexamethasone 6 mg/ Syringe 1.5 mls @ 1 mls/min IV DAILY [facility] Stop: 09/13/21 09:02 Last Admin: 09/12/21 08:08 Dose: 1 mls/min Documented by: Influenza Virus Vaccine Quadrival (Do Not Administer Flu Vaccine) 1 ea N/A PRN PRN PRN Reason: Notification Stop: 10/10/21 17:40 Lorazepam (Lorazepam 0.5 Mg Tab) 0.5 mg PO Q8H PRN PRN Reason: Sedation/Anxiety Stop: 10/10/21 17:40 Lorazepam (Lorazepam 2 Mg/1 Ml Vial) 0.5 mg IV Q8H PRN PRN Reason: Sedation/Anxiety Stop: 10/10/21 17:40 Magnesium Hydroxide (Magnesium Hydroxide Susp 30 Ml Udc) 30 ml PO Q24H PRN PRN Reason: Constipation Stop: 10/10/21 17:40 Metoclopramide HCl (Metoclopramide Hcl Inj 5 Mg/Ml 2 Ml Vial) 10 mg IV Q6H PRN PRN Reason: Nausea &/or Vomiting Stop: 10/10/21 17:40 Naloxone HCl (Naloxone Hcl 0.4 Mg/1 Ml Vial/Carp) 0.1 mg IV Q5M PRN PRN Reason: Oversedation/Resp depression Stop: 10/10/21 17:40 Ondansetron HCl (Ondansetron Inj 2 Mg/Ml 2 Ml Vial) 4 mg IV Q6H PRN PRN Reason: Nausea &/or Vomiting Stop: 10/10/21 17:40 Ondansetron HCl (Ondansetron 4 Mg Od Tab) 4 mg PO Q6H PRN PRN Reason: Nausea Stop: 10/10/21 17:40 Pneumococcal Polyvalent Vaccine (Do Not Administer Pneumococcal Vaccine) 1 ea N/A PRN PRN PRN Reason: Notification Stop: 10/10/21 17:40 Polyethylene Glycol (Polyethylene (Miralax) 17 Gm Pack) 17 gm PO Q6 BHARAT Stop: 10/11/21 05:59 Last Admin: 09/12/21 11:19 Dose: 17 gm Documented by: Senna/Docusate Sodium (Docusate Sodium/Senna 50/8.6mg Tab) 2 tab PO HS BHARAT Stop: 10/10/21 20:59 Last Admin: 09/11/21 21:13 Dose: 2 tab Documented by: Sertraline HCl (Sertraline Hcl 100 Mg Tablet) 200 mg PO QAM BHARAT Stop: 10/11/21 08:59 Last Admin: 09/12/21 08:08 Dose: 200 mg Documented by: Simvastatin (Simvastatin 20 Mg Tab) 20 mg PO PM BHARAT Stop: 10/10/21 20:59 Last Admin: 09/11/21 21:13 Dose: 20 mg Documented by: Sodium Biphosphate/Sodium Phosphate (Sod Phosphate/Sod Biphosphate Enema 132 Ml Btl) 132 ml RI ONE PRN PRN Reason: Constipation Stop: 10/10/21 17:40 Tramadol HCl (Tramadol Hcl 50 Mg Tablet) 50 - 100 mg PO Q4H PRN PRN Reason: Moderate-Severe pain & Pre PT Stop: 10/10/21 17:40 Umeclidinium [place] (Umeclidinium [place] 62.5mcg/Blister 7 Puffs/Inhaler) 1 puffs INH [facility]; Protocol Stop: 10/11/21 08:59 Last Admin: 09/12/21 08:07 Dose: 1 puffs Documented by:
[2021-09-12] MEDS: DOCUSATE SODIUM/SENNA 50/8.6MG TAB PO SCH (20:50)
[2021-09-12] MEDS: SIMVASTATIN 20 MG TAB PO SCH (20:51)
[2021-09-12] MEDS: ALUMINUM/MAGNESIUM SUSP 30 ML UDC PO PRN (23:06)
[2021-09-13] MEDS: POLYETHYLENE (MIRALAX) 17 GM PACK PO SCH ×2 (05:27→11:52)
[2021-09-13] MEDS: FAMOTIDINE 20 MG TAB PO PRN (05:29)
[2021-09-13] MEDS: FLUTICASONE/VILANTEROL 200/25MCG 14 PUFFS/INHALER INH SCH (07:41)
[2021-09-13] MEDS: dexAMETHasone 6 MG in SYRINGE 0 ML IV SCH (07:41)
[2021-09-13] MEDS: HYDROCODONE/ACETAMOPHEN 5/325MG TAB PO PRN ×2 (07:41→11:52)
[2021-09-13] MEDS: SERTRALINE HCL 100 MG TABLET PO SCH (07:42)
[2021-09-13] MEDS: ACEBUTOLOL HCL 200 MG CAPSULE PO SCH (07:42)
[2021-09-13] MEDS: UMECLIDINIUM BROMIDE 62.5MCG/BLISTER 7 PUFFS/INHALER INH SCH (07:42)
--- NOTE | 2021-09-13 08:35 | Discharge Summary ---
Date of Service September 13, 2021 Admission HPI Per Admitting Provider This is a 48-year-old male who presents with chronic persistent back and leg pain. After failing a course of nonoperative care is here for surgical invention. Principal Diagnosis Lumbar spine stenosis with neurogenic claudication Discharge Data Allergies Allergy/AdvReac Type Severity Reaction Status Date / Time oxycodone AdvReac Mild "SHAKY" Verified 09/10/21 11:23 Consultations 09/10/21 16:16 Consult Hospitalist Routine Procedures Performed Operation Date: 08/21/21 12:45 <No data on this case meets the specified criteria> Operation Date: 09/10/21 12:35 Actual Procedures p L4-L5 Decompression fusion, with spinal cord monitoring(Bilateral) - Christophe Post DO s L5-S1 hardware removal(Bilateral) - Christophe Post DO Ordered Studies 09/10/21 12:35 FL lumbar spine 2-3V Routine Hospital Course (1) Neurogenic claudication due to lumbar spinal stenosis: Patient underwent lumbar decompression fusion tolerates well second orthopedic for postoperative. Postop day 1 is up and ambulating progressive postop day #2. JENNY drain decreasing probably. Excellent strength testing. Pain well controlled. Subsequent discharge home. Discharge orders and instructions found in the chart for further review. Total Time Total Time Spent Total Time Spent (In Minutes): 20 minutes Discharge Plan Discharge Items Patient Disposition: Home - Self-Care Reason For Visit: Radiculopathy, Lumbar Region Discharge Diagnosis: Lumbar spinal stenosis with radiculopathy Activity: As commented below Non-emergency contact: Primary Care Provider Call non-emergency contact if: you have any medication questions Follow-up/Referrals: Justo Doty MD [Primary Care Provider] - Diet: Regular Addtl Attending Provider Instructions: ACTIVITY RECOMMENDATIONS: SELF CARE INSTRUCTIONS AFTER THORACIC/LUMBAR FUSIONS 1. You may walk to your tolerance. It is good exercise for your legs and back. Expect some back and intermittent leg aches and pains. 2. You may perform "counter-top" level activities (make a sandwich, sandra with a project, etc.). 3. No bending or lifting of more than 10 pounds or back twisting of any nature (roll like a log when turning in bed). 4. You may ride in a car for 20-30 minutes at a time. No driving until after your first visit with your doctor. 5. Frequent changes of position and restricting sitting to 30 minutes at a time will help limit the amount of back spasms and stiffness you may experience. 6. You may discontinue the use of ambulatory aids (cane, crutches, etc.) once your strength and confidence allow. 7. You may informatics coordinator the shower and let water strike your incision when you arrive home at least once daily. Do not take a tub bath, sit in a hot tub or go into a swimming pool until after your first recheck in the office. SPECIAL CARE INSTRUCTIONS: VERY IMPORTANT TO READ AND REVIEW A. Your surgical incision has been closed with a cosmetic suture under the skin that will dissolve in about 6 weeks. In 14 days, you can use a pair of clean scissors and cut the suture that is left outside of the skin at the ends of your incision. 1. The small skin tapes can be removed 7 days after surgery if they have not fallen off by that point. 2. You may keep the wound open to air as much as possible to promote healing after post-op day number 5 unless told otherwise by your doctor. 3. If you think the wound looks like it is becoming infected (redness or worsening drainage) and/or you are experiencing fever, chill or worsening back pain and muscle spasms, contact the office so that we may evaluate you as soon as possible. B. Complications are uncommon, but please contact us if you have any signs or symptoms of: 1. wound infection (fever higher than 102.5 degrees F, redness, separation of wound, drainage, or increasing pain from the incision) 2. blood clots in legs (pain, swelling, redness and warmth in legs) 3. urinary tract infection (fever higher than 102.5 degrees F, burning upon urination or increased frequency of urination) 4. nerve problems (inability to walk on your toes or heels, numbness, loss of bowel or bladder control) 5. any other symptoms that concern you C. Please call the office at if you have any concerns or questions about your operation or recovery. D. No smoking! Smoking drastically decreases the chance of a solid fusion. E. Do not take any anti-inflammatory medications (Indocin, Advil, Motrin, Aspirin, Naprosyn, etc.) as these may inhibit the chance of a solid fusion. Tylenol is okay to take for pain. MANAGING PAIN AFTER SPINAL SURGERY 1. Narcotic medication is intended for short-term use and will be provided for surgical pain. Surgical pain usually lasts for a period of 4-6 weeks. Narcotic medication includes Percocet, Vicodin, Darvocet, Tylenol #3 or Lortab. 2. Longer-term pain is more appropriately treated with non-narcotic medication such as Tylenol ES. 3. Muscle spasm is not appropriately treated with narcotics. Muscle relaxers such as Soma, Flexeril or Skelaxin can be used along with Tylenol ES. 4. Remember that we all live with some "aches and pains". This is not unusual or uncommon after an injury or as we get older. a. Back pain is expected and may include muscle spasms for 4 to 6 weeks after surgery. The pain should gradually improve. If the pain worsens for no apparent reason, please contact the office. b. Intermittent leg pain may also be experienced and should not be concerned about unless it worsens for no apparent reason. If so, please contact the office. 5. We will provide appropriate medication within the normal guidelines of their prescribed use. We will also be very cautious and aware of potential abuse and extended duration of patients' medication needs. a. Pain medications are for your comfort and to assist with sleep and rest so that the tissue can heal. They are not provided in order to return to normal activity and should not be used through the day. To do so or worsening pain at night can result from ongoing tissue damage and development of tolerance to the prescribed medicine. 6. Please allow 2-3 days to process refills. Prescriptions will not be mailed but must be picked up at the office. FOLLOW UP VISIT: Keep your scheduled follow-up appointment. Any questions, please call the office at . Pending Studies at Discharge: No Stand-Alone Forms: [employer], Smoking Cessation Medications and DC Order Prescriptions: New hydrocodone-acetaminophen 5-325 mg tablet See Rx Instructions .ROUTE .COMPLEX PRN (Reason: pain) Qty: 30 RF: 0 tramadol 50 mg tablet 50 mg PO Q6H PRN (Reason: pain, moderate) Qty: 30 RF: 0 Continued cyclobenzaprine 10 mg Tablet 10 mg PO TID PRN (Reason: Muscle Spasm) RF: 0 sertraline [Zoloft] 100 mg Tablet 200 mg PO QAM RF: 0 simvastatin [Zocor] 20 mg Tablet 20 mg PO PM RF: 0 indomethacin 50 mg Capsule 50 mg PO QID PRN (Reason: Other) RF: 0 acebutolol 200 mg Capsule 200 mg PO BID RF: 0 albuterol sulfate 90 mcg/actuation Hfa Aerosol Inhaler 1 inh INHALATION QID PRN (Reason: Wheezing) RF: 0 Spiriva with HandiHaler 18 mcg Capsule, W/Inhalation Device 1 cap INHALATION QAM RF: 0 Breo Ellipta 200-25 mcg/dose Blister With Device 1 inh INHALATION QAM RF: 0 acetaminophen [Tylenol] 325 mg Tablet 650 mg PO QAM RF: 0 ibuprofen 100 mg Tablet 600 mg PO QID PRN (Reason: Pain) RF: 0 Discharge Orders: Discharge Order (Routine); Ordered 09/13/21 Ordered By: Christophe Post Admission Data Admit Date/Time: 09/10/21 16:16 Attending Provider: Sebastian Quigley Admit Provider: Christophe Post Primary Care Provider: Justo Doty Other Providers: Lora Edward ; Christophe Post
--- NOTE | 2021-09-13 11:54 | Hospitalist Progress Note ---
Date of Service September 13, 2021 Assessment & Plan (1) Status post lumbar surgery: Plan: Post op day# 3 S/P L4-L5 decompression and fusion by Dr Post Pain and wound management per ortho (2) Hypertension: Plan: -chronic, at goal, Continue acebutolol (3) Hyperlipidemia: Plan: -chronic, stable, Continue statin (4) Asthma: Plan: -chronic, stable, Continue home inhalers (5) Sleep apnea: Plan: -Continue CPAP HS (6) Anxiety: Plan: -chornic, stable, Continue sertraline Plan: Stable for discharge from hospitalist perspective. Admission and Anticipated Discharge Date Admission Date: September 10, 2021 Subjective Feels ready to go home. Pain is controlled with medication. Ambulating. Had small BM. Passing gas. Physical Exam Physical Exam: General: Sitting comfortably in chair, not in acute distress, on room air HEENT: EOMI, STEPHENIE, MMM Chest: Clear breath sounds bilaterally, no wheezes or crackles CVS: Regular rate and rhythm, normal heart sounds, no murmur Abdomen: Soft, non tender, not distended, normal bowel sounds Back: Dressing intact with JENNY drain draining serosanguineous discharge Neuro: Awake, alert, oriented, conversing well, non focal Extremities: No cyanosis, clubbing or edema Results & Data Results & Data ([facility]) Vital Signs (Past 12 Hours) Vital Signs Temp Pulse Resp BP Pulse Ox 09/13/21 07:15 36.5 C 65 16 133/83 98 Diagnostic Findings Laboratory Results WBC 9.96 K/uL (4.8-10.8) 09/12/21 06:03 RBC 3.84 M/uL (4.7-6.1) L 09/12/21 06:03 Hgb 12.1 g/dL (14.0-18.0) L 09/12/21 06:03 Hct 35.3 % (42-52) L 09/12/21 06:03 MCV 91.9 fL (80-100) 09/12/21 06:03 MCH 31.5 pg (25-34) 09/12/21 06:03 MCHC 34.3 g/dL (32-36) 09/12/21 06:03 RDW Std Deviation 44.7 fL (36.4-46.3) 09/12/21 06:03 RDW Coeff of Familia 13.4 % (11.5-14.5) 09/12/21 06:03 Plt Count 152 K/uL (130-400) 09/12/21 06:03 MPV 10.2 fL (7.4-10.4) 09/12/21 06:03 Immature Gran % (Auto) 0.1 % 09/11/21 04:57 Neut % (Auto) 86.8 % 09/11/21 04:57 Lymph % (Auto) 4.6 % 09/11/21 04:57 [place] % (Auto) 8.5 % 09/11/21 04:57 Eos % (Auto) 0.0 % 09/11/21 04:57 Baso % (Auto) 0.0 % 09/11/21 04:57 Neut # (Auto) 12.51 K/uL (1.4-6.5) H 09/11/21 04:57 Lymph # (Auto) 0.66 K/uL (1.2-3.4) L 09/11/21 04:57 [place] # (Auto) 1.23 K/uL (0.11-0.59) H 09/11/21 04:57 Eos # (Auto) 0.00 K/uL (0-0.5) 09/11/21 04:57 Baso # (Auto) 0.00 K/uL (0-0.2) 09/11/21 04:57 Immature Gran # (Auto) 0.02 K/uL (0.00-0.02) 09/11/21 04:57 Sodium 139 mmol/L (136-145) 09/12/21 06:03 Potassium 4.0 mmol/L (3.5-5.1) 09/12/21 06:03 Chloride 105 mmol/L (98-107) 09/12/21 06:03 Carbon Dioxide 31 mmol/L (21-32) 09/12/21 06:03 Anion Gap 3 (3-11) 09/12/21 06:03 BUN 21 mg/dl (6-23) 09/12/21 06:03 Creatinine 1.03 mg/dl (0.6-1.4) 09/12/21 06:03 Est Cr Clr Drug Dosing 107.9 ml/min 09/12/21 06:03 Est GFR ( Amer) 92.4 ml/min 09/12/21 06:03 Est GFR (Non-Af Amer) 79.7 ml/min 09/12/21 06:03 BUN/Creatinine Ratio 20.4 (10-20) H 09/12/21 06:03 Glucose 130 mg/dl (70-99(Fasting)) H 09/12/21 06:03 Calcium 8.9 mg/dl (8.5-10.1) 09/12/21 06:03 SARS-CoV-2, RNA, NAAT NEGATIVE (NEGATIVE) 09/10/21 Unknown Blood Type O Positive 09/10/21 11:46 Antibody Screen NEGATIVE 09/10/21 11:46 Impressions Lumbar Spine X-Ray 09/10/21 12:35 FL lumbar spine 2-3V CLINICAL HISTORY: L4-L5 DECOMPRESSION/FUSION L5-S1 HW REMOVAL COMPARISON STUDY: Lumbar spine MRI November 21, 2019. FLUOROSCOPY TIME: 11 seconds. FLUOROSCOPIC IMAGES: 2 FINDINGS: Previous L5-S1 discectomy with interbody spacer placement is noted. L5-S1 hardware was removed. Interval L4-L5 discectomy and interbody spacer placement as noted. Posterior decompression with bilateral pedicle screw fusion at L4 and L5 is noted. IMPRESSION: Fluoroscopy provided during hardware removal, interval L4-L5 discectomy, posterior decompression and bilateral pedicle screw fusion. ACT 112: Negative or not required by law. Electronically signed by: Danyel Huffman M.D. 09/10/2021 4:20 PM Medications Administered Current Inpatient Medications Acebutolol HCl (Acebutolol Hcl 200 Mg Capsule) 200 mg PO BID BHARAT Stop: 10/10/21 20:59 Last Admin: 09/13/21 07:42 Dose: 200 mg Documented by: Acetaminophen (Acetaminophen 500 Mg Tab) 1,000 mg PO Q8H PRN PRN Reason: MILD Pain Scale 1,2,3 & Pre PT Stop: 10/10/21 17:40 Hydrocodone Bitart/Acetaminophen (Hydrocodone/Acetamophen 5/325mg Tab) 1 - 2 tab PO Q4H PRN PRN Reason: Pain & Pre PT Stop: 09/24/21 17:40 Last Admin: 09/13/21 11:52 Dose: 2 tab Documented by: Al Hydrox/Mg Hydrox/Simethicone (Aluminum/Magnesium Susp 30 Ml Udc) 30 ml PO Q6H PRN PRN Reason: Dyspepsia Stop: 10/10/21 17:40 Last Admin: 09/12/21 23:06 Dose: 30 ml Documented by: Albuterol (Albuterol Hfa 8 Gm Inhaler) 1 puffs INH QID PRN PRN Reason: Wheezing Stop: 10/10/21 17:40 Bisacodyl (Bisacodyl 10 Mg Supp) 10 mg [place] DAILY PRN PRN Reason: Constipation Stop: 10/10/21 17:40 Diphenhydramine HCl (Diphenhydramine Capsule 25 Mg Cap) 25 mg PO Q6H PRN PRN Reason: Allergic Rhinitis/Insomnia Stop: 10/10/21 17:40 Famotidine (Famotidine 20 Mg Tab) 20 mg PO Q12H PRN PRN Reason: Dyspepsia Stop: 10/10/21 17:40 Last Admin: 09/13/21 05:29 Dose: 20 mg Documented by: Fluticasone/Vilanterol (Fluticasone/Vilanterol 200/25mcg 14 Puffs/Inhaler) 1 puffs INH QAM BHARAT Stop: 10/11/21 08:59 Last Admin: 09/13/21 07:41 Dose: 1 puffs Documented by: Hydromorphone HCl (Hydromorphone Inj 0.5 Mg/0.5 Ml Syr) 0.5 mg IV Q3H PRN PRN Reason: MODERATE Pain (Scale 4,5,6) & Pre PT Stop: 09/24/21 17:40 Hydromorphone HCl (Hydromorphone Inj 1 Mg/Ml Syringe) 1 mg IV Q3H PRN PRN Reason: SEVERE Pain (Scale 7,8,9,10) Stop: 09/24/21 17:40 Hydroxyzine HCl (Hydroxyzine Hcl 25 Mg Tab) 25 mg PO Q8H PRN PRN Reason: Anxiety Stop: 10/10/21 17:40 Promethazine HCl 12.5 mg/ (Sodium Chloride) 50.5 mls @ 202 mls/hr IV Q6H PRN PRN Reason: Nausea &/or Vomiting Stop: 10/10/21 17:40 Acetaminophen (Ofirmev) 1,000 mg in 100 mls @ 400 mls/hr IV Q8H PRN PRN Reason: Pain Rating 1-3 & Pre PT Stop: 09/13/21 17:40 Influenza Virus Vaccine Quadrival (Do Not Administer Flu Vaccine) 1 ea N/A PRN PRN PRN Reason: Notification Stop: 10/10/21 17:40 Lorazepam (Lorazepam 0.5 Mg Tab) 0.5 mg PO Q8H PRN PRN Reason: Sedation/Anxiety Stop: 10/10/21 17:40 Lorazepam (Lorazepam 2 Mg/1 Ml Vial) 0.5 mg IV Q8H PRN PRN Reason: Sedation/Anxiety Stop: 10/10/21 17:40 Magnesium Hydroxide (Magnesium Hydroxide Susp 30 Ml Udc) 30 ml PO Q24H PRN PRN Reason: Constipation Stop: 10/10/21 17:40 Last Admin: 09/13/21 11:52 Dose: 30 ml Documented by: Metoclopramide HCl (Metoclopramide Hcl Inj 5 Mg/Ml 2 Ml Vial) 10 mg IV Q6H PRN PRN Reason: Nausea &/or Vomiting Stop: 10/10/21 17:40 Naloxone HCl (Naloxone Hcl 0.4 Mg/1 Ml Vial/Carp) 0.1 mg IV Q5M PRN PRN Reason: Oversedation/Resp depression Stop: 10/10/21 17:40 Ondansetron HCl (Ondansetron Inj 2 Mg/Ml 2 Ml Vial) 4 mg IV Q6H PRN PRN Reason: Nausea &/or Vomiting Stop: 10/10/21 17:40 Ondansetron HCl (Ondansetron 4 Mg Od Tab) 4 mg PO Q6H PRN PRN Reason: Nausea Stop: 10/10/21 17:40 Pneumococcal Polyvalent Vaccine (Do Not Administer Pneumococcal Vaccine) 1 ea N/A PRN PRN PRN Reason: Notification Stop: 10/10/21 17:40 Polyethylene Glycol (Polyethylene (Miralax) 17 Gm Pack) 17 gm PO Q6 BHARAT Stop: 10/11/21 05:59 Last Admin: 09/13/21 11:52 Dose: 17 gm Documented by: Senna/Docusate Sodium (Docusate Sodium/Senna 50/8.6mg Tab) 2 tab PO HS BHARAT Stop: 10/10/21 20:59 Last Admin: 09/12/21 20:50 Dose: 2 tab Documented by: Sertraline HCl (Sertraline Hcl 100 Mg Tablet) [facility] Stop: 10/11/21 08:59 Last Admin: 09/13/21 07:42 Dose: 200 mg Documented by: Simvastatin (Simvastatin 20 Mg Tab) 20 mg PO PM [facility] Stop: 10/10/21 20:59 Last Admin: 09/12/21 20:51 Dose: 20 mg Documented by: Sodium Biphosphate/Sodium Phosphate (Sod Phosphate/Sod Biphosphate Enema 132 Ml Btl) 132 ml [place] ONE PRN PRN Reason: Constipation Stop: 10/10/21 17:40 Tramadol HCl (Tramadol Hcl 50 Mg Tablet) 50 - 100 mg PO Q4H PRN PRN Reason: Moderate-Severe pain & Pre PT Stop: 10/10/21 17:40 Last Admin: 09/12/21 23:06 Dose: 100 mg Documented by: Umeclidinium Iroquois (Umeclidinium Iroquois 62.5mcg/Blister 7 Puffs/Inhaler) [address] [facility]; Protocol Stop: 10/11/21 08:59 Last Admin: 09/13/21 07:42 Dose: 1 puffs Documented by:
== END 2021-09-13 14:50 | disposition home or self-care (01) | DRG 454 ==
LOC: ASU 11:03 → 3E 16:16 → SUATTDRO 16:16